=== PATIENT | male | born 1955 | race Caucasian/White ===

== ENCOUNTER 2019-03-09 19:17 | Emergency (ER) | payer BC, OTHER ==
[2019-03-09] MEDS ORDERED: Metoclopramide 10 MG/2 ML SDV IVPUSH ONE (20:06)
[2019-03-09] MEDS ORDERED: HYDROmorphone 0.5 MG/0.5 ML Syringe IVPUSH ONE (20:06)
--- NOTE | 2019-03-09 20:06 | EDM.PDOC ---
ED HPI GENERAL MEDICAL PROBLEM - General Chief Complaint: Abdominal Pain Stated Complaint: ABDOMINAL PAIN Time Seen by Provider: 03/09/19 20:00 Source of Information: Reports: Patient History Limitations: Reports: No Limitations - History of Present Illness INITIAL COMMENTS - FREE TEXT/NARRATIVE: 63-year-old male presents to the ED with diffuse lower abdominal pain which is constant but intermittently gets much worse indicating a colicky component. Patient was recently diagnosed with a pancreatic mass and suspect pancreatic carcinoma. He was in [place] on March 07 and underwent ERCP with pancreatic biopsies and apparently a stent placed in the common bile duct and in the pancreatic duct. From hospital a few hours later. He states the pain has almost always been upper abdominal for the last several weeks. It is now much worse in the infraumbilical area across both sides of his lower abdomen. Is not radiating to his back. He is hardly kept down any solids. He did keep down some scrambled eggs this morning. Not had a bowel movement for several days and he was given milk of magnesia and today Citroma orally in an effort to get his bowels working. About an hour ago he had emesis dark black in color question. Coffee-ground emesis, no bright red blood. No fever or chills. States he just passes his urine on a periodic basis he doesn't really have the sensation of void. I suspect he is voiding just to get relief of the abdominal pain. Nausea comes in waves. Patient can't comment that he feels any more distended than normal. Not sure that he's passing any flatus. Onset: Other (Patient has had upper abdominal pain for several weeks. Recently diagnosed by CT scan of a pancreatic mass. Underwent ERCP with pancreatic biopsy on March 07 in [facility].He had a stent placed in his common bile duct and pancreatic duct at that time. [facility] a few hours after the procedure. Has not her to been able to eat at all since discharge. Has not had a bowel 1. He's not sure that he's passing any flatus at this time.) Onset Date: 03/09/19 (Pain has changed his now become lower abdominal stat of upper abdominal pain and is constant with a intermittent strong colicky component.) Duration: Hour(s): Location: Reports: Abdomen (Diffuse lower abdominal pain which is constant with a colicky component.), Other (Nausea and vomiting of dark black emesis.) Quality: Reports: Sharp (Pain is described as a deep constant aching pain with intermittent worsening suggesting colicky component.), Stabbing, Other Severity: Severe Improves with: Reports: None (9 out of 10), Other Worsens with: Reports: None Context: Reports: Other (Patient recently diagnosed with pancreatic cancer or suspect pancreatic cancer. Underwent ERCP in [place] on Thursday, March 07 and palliative placement of stents in both his pancreatic duct and common bile duct. ). Denies: Activity, Exercise (Vomiting did not ease up the pain.), Lifting, Sick Contact, Trauma Associated Symptoms: Reports: Loss of Appetite, Malaise, Nausea/Vomiting, Weakness. 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: Other (see below) (Has been taking laxatives today including milk of magnesia and Citroma and an effort to get his bowels working.) Middle Abdomen Pain Score (Numeric/FACES): 9 - Related Data Allergies Allergy/AdvReac Type Severity Reaction Status Date / Time No Known Allergies Allergy Verified 03/09/19 19:48 Home Meds: Home Meds Acetaminophen [Tylenol Extra Strength] 500 mg PO DAILY 03/09/19 [History] Aspirin/Caffeine [Trey Back & Body Caplet] 1 each PO DAILY 03/09/19 [History] Chlorthalidone 25 mg PO DAILY 03/09/19 [History] Enalapril Maleate 20 mg PO DAILY 03/09/19 [History] Ibuprofen 200 mg PO Q4HR 03/09/19 [History] Simvastatin [Zocor] 40 mg PO DAILY 03/09/19 [History] oxyCODONE HCl/Acetaminophen [Oxycodone-Acetaminophen 5-325] 1 each PO Q4HR 03/09 [History] Past Medical History HEENT History: Reports: None Cardiovascular History: Reports: High Cholesterol, Hypertension Respiratory History: Reports: None Genitourinary History: Reports: None Musculoskeletal History: Reports: None Neurological History: Reports: None Psychiatric History: Reports: None Endocrine/Metabolic History: Reports: None Hematologic History: Reports: None Immunologic History: Reports: None Oncologic (Cancer) History: Reports: Pancreatic Dermatologic History: Reports: None - Infectious Disease History Infectious Disease History: Reports: None - Past Surgical History Head Surgeries/Procedures: Reports: None GI Surgical History: Reports: ERCP Other GI Surgeries/Procedures: Stents placed in pancreas and liver. Social & Family History - Tobacco Use Smoking Status *Q: Current Every Day Smoker Years of Tobacco use: 48 Packs/Tins Daily: 1 - Caffeine Use Caffeine Use: Reports: Coffee, Soda - Recreational Drug Use Recreational Drug Use: No - Living Situation & Occupation Living situation: Reports: Occupation: Employed ED ROS GENERAL - Review of Systems Review Of Systems: See Below Constitutional: Reports: Malaise, Weakness, Fatigue, Decreased Appetite, Weight Loss. Denies: Fever, Chills HEENT: Reports: No Symptoms Respiratory: Reports: No Symptoms Cardiovascular: Reports: Blood Pressure Problem Endocrine: Reports: Fatigue GI/Abdominal: Reports: Abdominal Pain (See history present illness), Constipation (No bowel movement for 3 or 4 days.), Decreased Appetite ( Augmentin for 3 days at least.), Vomiting (Vomiting of dark black material tonight.). Denies: Difficulty Swallowing, Flatus (Not sure if he's passing any flatus for the last 8 hours.) : Reports: Other (He states he doesn't feel a sensation of void. He just voids to see if it will relieve his abdominal pain.) Musculoskeletal: Reports: No Symptoms Skin: Reports: No Symptoms Neurological: Reports: Weakness. Denies: Dizziness ED EXAM, GI/ABD - Physical Exam Exam: See Below Exam Limited By: No Limitations General Appearance: Alert, WD/WN, Moderate Distress, Other (He appears to been a good deal of pain Resting tachycardia of 117 per minute. Temperature 35.8. Respiratory of 18 BP 112/69. Nurse recorded blood pressure as low as 95 systolic. O2 sats 96% on room air. ) Eyes: Bilateral: Normal Appearance (No scleral icterus.) Throat/Mouth: Other Head: Atraumatic (Tongue is mildly dry and coated), Normocephalic Neck: Normal Inspection, Supple, Non-Tender, Full Range of Motion. No: Carotid Bruit, Lymphadenopathy (L), Lymphadenopathy (R), Thyromegaly Respiratory/Chest: No Respiratory Distress, Lungs Clear, Normal Breath Sounds, No Accessory Muscle Use, Chest Non-Tender Cardiovascular: No Edema (Resting tachycardia 1 17/m.), No Gallop, No Murmur, No Rub, Tachycardia GI/Abdominal Exam: Distended (Bowel sounds are hyperactive in all 4 quadrants. Distended and firm to palpation and diffusely tympanitic to percussion.), Abnormal Bowel Sounds, Other (Abdominal distention limits ability to palpate any solid organs.) (Male) Exam: No Hernia Back Exam: Normal Inspection, Full Range of Motion. No: CVA Tenderness (L), CVA Tenderness (R) Extremities: Normal Inspection, Normal Range of Motion, Non-Tender, No Pedal Edema Neurological: Alert, Oriented, CN II-XII Intact, Normal Cognition Psychiatric: Flat Affect Skin Exam: Warm, Dry, Intact, Normal Color, No Rash EKG INTERPRETATION EKG Date: 03/09/19 Time: 20:32 Rhythm: Other (Sinus tachycardia at 1 15/m) Rate (Beats/Min): 115 [place]: RAD-Right [place] Deviation (Minimal right ex deviation 95) P-Wave: Enlarged (Right atrial hypertrophy pattern) QRS: Other (Initial poor R-wave progression cannot rule out old anteroseptal myocardial infarction.) ST-T: Other (Early diffuse repolarization pattern.) QT: Normal EKG Interpretation Comments: Borderline ECG. Course - Vital Signs Last Recorded V/S: Last Vital Signs Temp 35.8 C 03/09/19 19:44 Pulse 117 H 03/09/19 19:44 Resp 18 03/09/19 19:44 BP 112/69 03/09/19 19:44 Pulse Ox 96 03/09/19 19:44 - Orders/Labs/Meds Orders: Active Orders 24 hr Category Date Time Status EKG Documentation Completion [RC] STAT Care 03/09/19 20:07 Active Nasogastric Tube Management [Gastrointestinal Tube Mgmt Care 03/09/19 23:06 Active ] [RC] ASDIRECTED Abdomen 1V Flat [CR] Stat Exams 03/09/19 20:07 Taken Abdomen Pelvis wo Cont [CT] Stat Exams 03/09/19 21:32 Taken CULTURE BLOOD [BC] Stat Lab 03/09/19 20:25 Received CULTURE BLOOD [BC] Stat Lab 03/09/19 20:31 Received LACTIC ACID [CHEM] Stat Lab 03/10/19 04:00 Ordered Dextrose 5%-0.9% NaCl [Dextrose 5%-Normal Saline] 1,000 Med 03/09/19 20:15 Active ml IV ASDIRECTED Sodium Chloride 0.9% [Normal Saline] 1,000 ml Med 03/09/19 23:30 Active IV ASDIRECTED metroNIDAZOLE/Normal Saline [Flagyl 500 MG in NS 100 ML Med 03/10/19 03:27 Active ] 500 mg Premix Bag 1 bag IV ONETIME Blood Culture x2 Reflex Set [OM.PC] Stat Ot 03/09/19 20:09 Ordered Nasogastric Orogastric Tube Insertion [OM.PC] Routine Ot 03/09/19 23:05 Ordered Medication Orders Dextrose/Sodium Chloride (Dextrose 5%-Normal Saline) 1,000 mls @ 999 mls/hr IV ASDIRECTED [facility] Last Admin: 03/09/19 20:41 Dose: 999 mls/hr Sodium Chloride (Normal Saline) 1,000 mls @ 150 mls/hr IV ASDIRECTED [facility] Last Admin: 03/09/19 23:55 Dose: 150 mls/hr Metronidazole 500 mg/ Premix 100 mls @ 100 mls/hr IV ONETIME ONE Stop: 03/10/19 04:26 Last Admin: 03/10/19 03:45 Dose: 100 mls/hr Labs: Laboratory Tests 03/09/19 03/09/19 03/09/19 Range/Units 20:10 20:10 20:10 WBC 20.34 H (4.23-9.07) K/mm3 RBC 4.65 (4.63-6.08) M/mm3 Hgb 13.8 (13.7-17.5) gm/L Hct 40.0 L (40.1-51.0) % MCV 86.0 (79.0-92.2) fl MCH 29.7 (25.7-32.2) pg MCHC 34.5 (32.2-35.5) g/dl RDW Std Deviation 41.1 (35.1-43.9) fL Plt Count 257 (163-337) K/mm3 MPV 11.4 (9.4-12.3) fl Neutrophils % (Manual) 78 H (40-60) % Band Neutrophils % 6 (0-10) % Lymphocytes % (Manual) 12 L (20-40) % Atypical Lymphs % 0 % Monocytes % (Manual) 4 (2-10) % Eosinophils % (Manual) 0 L (0.8-7.0) % Basophils % (Manual) 0 L (0.2-1.2) Platelet Estimate Adequate RBC Morph Comment Normal PT 10.9 (9.7-12.0) SECONDS INR 1.00 APTT (22-31) SECONDS Sodium 132 L (136-145) mEq/L Potassium 3.6 (3.5-5.1) mEq/L Chloride 91 L (98-107) mEq/L Carbon Dioxide 30 (21-32) mEq/L Anion Gap 14.6 (5-15) BUN 34 H (7-18) mg/dL Creatinine 1.8 H (0.7-1.3) mg/dL Est Cr Clr Drug Dosing 40.64 mL/min Estimated GFR (MDRD) 38 (>60) mL/min BUN/Creatinine Ratio 18.9 H (14-18) Glucose 268 H (80-115) mg/dL Lactic Acid (0.4-2.0) mmol/L Calcium 10.0 (8.5-10.1) mg/dL Magnesium 2.2 (1.8-2.4) mg/dl Total Bilirubin 1.3 H (0.2-1.0) mg/dL GGT 313 H (15-85) U/L AST 19 (15-37) U/L ALT 70 H (16-63) U/L Alkaline Phosphatase 97 (46-116) U/L C-Reactive Protein 26.7 H* (<1.0) mg/dL NT-Pro-B Natriuret Pep (0-125) pg/mL Total Protein 8.2 (6.4-8.2) g/dl Albumin 3.5 (3.4-5.0) g/dl Globulin 4.7 gm/dL Albumin/Globulin Ratio 0.7 L (1-2) Lipase 3366 H (73-393) U/L 03/09/19 03/09/19 03/09/19 Range/Units 20:10 20:10 20:10 WBC (4.23-9.07) K/mm3 RBC (4.63-6.08) M/mm3 Hgb (13.7-17.5) gm/L Hct (40.1-51.0) % MCV (79.0-92.2) fl MCH (25.7-32.2) pg MCHC (32.2-35.5) g/dl RDW Std Deviation (35.1-43.9) fL Plt Count (163-337) K/mm3 MPV (9.4-12.3) fl Neutrophils % (Manual) (40-60) % Band Neutrophils % (0-10) % Lymphocytes % (Manual) (20-40) % Atypical Lymphs % % Monocytes % (Manual) (2-10) % Eosinophils % (Manual) (0.8-7.0) % Basophils % (Manual) (0.2-1.2) Platelet Estimate RBC Morph Comment PT (9.7-12.0) SECONDS INR APTT 27 (22-31) SECONDS Sodium (136-145) mEq/L Potassium (3.5-5.1) mEq/L Chloride (98-107) mEq/L Carbon Dioxide (21-32) mEq/L Anion Gap (5-15) BUN (7-18) mg/dL Creatinine (0.7-1.3) mg/dL Est Cr Clr Drug Dosing mL/min Estimated GFR (MDRD) (>60) mL/min BUN/Creatinine Ratio (14-18) Glucose (80-115) mg/dL Lactic Acid 2.3 H (0.4-2.0) mmol/L Calcium (8.5-10.1) mg/dL Magnesium (1.8-2.4) mg/dl Total Bilirubin (0.2-1.0) mg/dL GGT (15-85) U/L AST (15-37) U/L ALT (16-63) U/L Alkaline Phosphatase (46-116) U/L C-Reactive Protein (<1.0) mg/dL NT-Pro-B Natriuret Pep 203 H (0-125) pg/mL Total Protein (6.4-8.2) g/dl Albumin (3.4-5.0) g/dl Globulin gm/dL Albumin/Globulin Ratio (1-2) Lipase (73-393) U/L Meds: Medications Generic Name Dose Route Start Last Admin Trade Name Freq PRN Reason Stop Dose Admin Dextrose/Sodium Chloride 1,000 mls @ 999 mls/hr 03/09/19 20:15 03/09/19 20:41 Dextrose 5%-Normal Saline IV 999 mls/hr ASDIRECTED DESHANW Administration Sodium Chloride 1,000 mls @ 150 mls/hr 03/09/19 23:30 03/09/19 23:55 Normal Saline IV 150 mls/hr ASDIRECTED DESHAWN Administration Metronidazole 500 mg/ Premix 100 mls @ 100 mls/hr 03/10/19 03:27 03/10/19 03: 45 IV 03/10/19 04:26 100 mls/hr ONETIME ONE Administration Discontinued Medications Generic Name Dose Route Start Last Admin Trade Name Marilynn PRN Reason Stop Dose Admin Hydromorphone HCl 0.5 mg 03/09/19 20:06 03/09/19 20:37 Dilaudid IVPUSH 03/09/19 20:07 0.5 mg ONETIME ONE Administration Hydromorphone HCl 1 mg 03/09/19 21:31 03/09/19 21:38 Dilaudid IVPUSH 03/09/19 21:32 1 mg ONETIME ONE Administration Hydromorphone HCl 1 mg 03/10/19 03:13 03/10/19 03:44 Dilaudid IVPUSH 03/10/19 03:14 1 mg ONETIME ONE Administration Linezolid 600 mg/ Premix 300 mls @ 300 mls/hr 03/09/19 21:19 03/09/19 21:43 IV 03/09/19 22:18 300 mls/hr ONETIME ONE Administration Levofloxacin/Dextrose 750 mg/ 150 mls @ 100 mls/hr 03/09/19 23:18 03/09/19 23 :56 Premix IV 03/10/19 00:47 100 mls/hr ONETIME ONE Administration Lidocaine HCl 10 ml 03/09/19 23:04 Xylocaine 2% Jelly MUCMEM 03/09/19 23:05 ONETIME ONE Metoclopramide HCl 7.5 mg 03/09/19 20:06 03/09/19 20:34 Reglan IVPUSH 03/09/19 20:07 7.5 mg ONETIME ONE Administration Metoclopramide HCl 7.5 mg 03/10/19 03:13 03/10/19 03:43 Reglan IVPUSH 03/10/19 03:14 7.5 mg ONETIME ONE Administration - Radiology Interpretation Free Text/Narrative:: 63-year-old male presents to the ED with diffuse lower abdominal pain but also some degree of upper abdominal pain. Patient has had periumbilical pressure discomfort which became progressively worse over the last 2-3 weeks. ET suggesting likely a pancreatic mass. 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 He underwent ERCP with biopsy of pancreatic mass and placement of a common bile duct stent and pancreatic stent to the best of the patient's knowledge he was discharged home a few hours later. Since then he has developed gradually worsening diffuse lower abdominal pressure and pain. No bowel movement for 3 days. Taking oxycodone for pain relief. Tonight he vomited dark black looking material concerning for he met emesis although no blood was noted. He's not sure if he's passing any flatus. Pain is 9 out of 10. It is constant with a colicky component he is distended clinically with tympany to percussion with hyperactive bowel sounds concerning for possible bowel obstruction. Plan blood pressure is relatively low. Will be placed on D5 normal saline at open. Dilaudid 0.5 mg IV for pain relief due to his mild hypotension at this time. Reglan 7.5 mg IV for nausea relief. He will have routine lab work including blood cultures 2 although he is afebrile at this time. Lactic acid will also be drawn with a serum lipase. And will be performed. Possible need for CT of the abdomen. - Re-Assessments/Exams Free Text/Narrative Re-Assessment/Exam: 03/09/19 21:33 KUB reveals several dilated loops of small bowel compatible with an ileus type pattern. There is increased stool throughout the right hemicolon only. No air-fluid levels are evident.White count is markedly elevated at 20.34. 70% neutrophils and 6% band cells. Hemoglobin is 13.8 with hematocrit of 40.0. Platelet count 257,000. PT is 10.9 with an INR 1.00. PTT is 27. Sodium is 132 with a potassium of 3.6. Chloride 91 with a bicarbonate of 30. Anion gap is 14.6. BUN is 34 with a creatinine of 1.8. BUN/creatinine ratio is 18.9 slightly elevated. Glucose is elevated at 268. Lactic acid is elevated at 2.3. Calcium is 10.0. Magnesium is 2.2. Bilirubin is 1.3. GGT is elevated at 313. AST is 19 the LTS 70. Alk phosphatase 97. C-reactive protein is markedly elevated at 26.7. BNP is 2003. Lipase is elevated at 3366. Total protein is 8.2 with an albumin fraction of 3.5. Clinically the patient has a significant pancreatitis. Elevated white count suggests possibility of an infective process with left shift. He will be given linezolid 600 mg IV. He'll be followed by Levaquin 750 mg IV for gram-negative sepsis potentially. Patient will have CT scan of the abdomen once I get control of his pain. He still having severe pain. Will given Dilaudid 1 mg IV. 03/10/19: 00:10: CT of the abdomen has been completed without any oral or IV contrast. There is evidence of placement of a biliary stent which appears patent. There is peripancreatic inflammation especially involving the head of the pancreas consistent with an acute pancreatitis. Spleen appears normal and renal glands appear normal kidneys and ureters appear normal with no hydronephrosis. There are multiple mildly dilated loops of small bowel consistent with an ileus mid abdomen. No evidence of appendicitis. No free air no significant fluid collection in the intraperitoneal space abdominal aortic aneurysm. No enlarged lymph nodes. Bladder is unremarkable. Palpable mass in the head of the pancreas suspect for carcinoma. 03/10/19 01:[address] Woodward--superintendent communications hospitalist at [facility] in [place] and she has accepted care of the patient. I spoken earlier with Dr. Acevedo to 1 call at [facility] in [place] and he felt that the patient better served in [place] in case the stent required manipulation or was plugged as they do not have any cushion assembler in [facility] that places stents. Apparently the initial stents placed in his common bile duct and pancreatic duct were placed by Dr. Mohamud who may have been a locums. Apparently Dr. Jeronimo is superintendent communications and does not place any stents. 03/10/19 02:23 states at present his pain is fairly well controlled. He has drained approximately 450 mils of dark bilious material from his stomach through the nasogastric tube. He does have a feeling of need to defecate but so far has been unable to go. He does now start to feel or appreciate passing some flatus per rectum. This suggests the ileus is starting to let up. He is likely going to have diarrhea as there is quite a bit of fluid in the small bowel. 03/10/19 03:13 Still no plane available for transport to [place]. The weather is still too bad. They will check again at 0400 hrs. Since pain is starting to come back. Will therefore repeat Dilaudid 1 mg IV with Reglan 7.5 mg IV for relief of pancreatitis. He also was going to start him on Flagyl 500 mg IV to cover for anaerobic infection but was distracted by other patient care and the order was not written. I will write for it now. 03/10/19 03:27: Local paramedics have made a decision to transport the patient to [place]. I will therefore fill out appropriate paper work and he can go by ground ambulance. 03/10/19 04:00 I will have a second lactic acid level drawn at this time and then fax it to [place]. Departure - Departure Time of Disposition: 04:01 Disposition: DC/Tfer to Acute Hospital 02 Condition: Serious Clinical Impression: Acute pancreatitis after endoscopic retrograde cholangiopancreatography (ERCP) , Pancreatic carcinoma, Ileus, postoperative, Neutrophilic leukocytosis, Volume depletion, gastrointestinal loss, Renal insufficiency, Hyponatremia, Elevated C- reactive protein (CRP) Nausea and vomiting Qualifiers: Vomiting type: bilious vomiting Qualified Code(s): R11.14 - Bilious vomiting Abdominal pain Qualifiers: Abdominal location: generalized Qualified Code(s): R10.84 - Generalized abdominal pain - Discharge Information *PRESCRIPTION DRUG MONITORING PROGRAM REVIEWED*: Not Applicable *COPY OF PRESCRIPTION DRUG MONITORING REPORT IN PATIENT JARETH: Not Applicable Referrals: Sedrick Moralez Jr, MD [Primary Care Provider] - Forms: ED Department Discharge Additional Instructions: Patient will be transported back to [facility] where he had the ERCP and pancreatic abscesses and placement of common bile duct stent on Thursday , March 07. I had discussed care with [facility] in [place] but they declined to accept care of the patient due to the possibility of needing further intervention with stenting. They state they have no one at that institution that does any common bile duct or pancreatic duct stenting. We were waiting for the weather to clear her to be able to fly the patient to [place] but the weather has failed to improve over the last 4 hours. [facility] has opted to take the patient by ground ambulance to [place] at this time. - My Orders Last 24 Hours: My Active Orders 03/09/19 20:07 EKG Documentation Completion [RC] STAT Abdomen 1V Flat [CR] Stat 03/09/19 20:09 Blood Culture x2 Reflex Set [OM.PC] Stat 03/09/19 20:15 Dextrose 5%-0.9% NaCl [Dextrose 5%-Normal Saline] 1,000 ml IV ASDIRECTED 03/09/19 20:25 CULTURE BLOOD [BC] Stat 03/09/19 20:31 CULTURE BLOOD [BC] Stat 03/09/19 21:32 Abdomen Pelvis wo Cont [CT] Stat 03/09/19 23:05 Nasogastric Orogastric Tube Insertion [OM.PC] Routine 03/09/19 23:06 Nasogastric Tube Management [Gastrointestinal Tube Mgmt] [RC] ASDIRECTED 03/09/19 23:30 Sodium Chloride 0.9% [Normal Saline] 1,000 ml IV ASDIRECTED 03/10/19 03:27 metroNIDAZOLE/Normal Saline [Flagyl 500 MG in NS 100 ML] 500 mg Premix Bag 1 bag IV ONETIME 03/10/19 04:00 LACTIC ACID [CHEM] Stat - Assessment/Plan Last 24 Hours: My Active Orders 03/09/19 20:07 EKG Documentation Completion [RC] STAT Abdomen 1V Flat [CR] Stat 03/09/19 20:09 Blood Culture x2 Reflex Set [OM.PC] Stat 03/09/19 20:15 Dextrose 5%-0.9% NaCl [Dextrose 5%-Normal Saline] 1,000 ml IV ASDIRECTED 03/09/19 20:25 CULTURE BLOOD [BC] Stat 03/09/19 20:31 CULTURE BLOOD [BC] Stat 03/09/19 21:32 Abdomen Pelvis wo Cont [CT] Stat 03/09/19 23:05 Nasogastric Orogastric Tube Insertion [OM.PC] Routine 03/09/19 23:06 Nasogastric Tube Management [Gastrointestinal Tube Mgmt] [RC] ASDIRECTED 03/09/19 23:30 Sodium Chloride 0.9% [Normal Saline] 1,000 ml IV ASDIRECTED 03/10/19 03:27 metroNIDAZOLE/Normal Saline [Flagyl 500 MG in NS 100 ML] 500 mg Premix Bag 1 bag IV ONETIME 03/10/19 04:00 LACTIC ACID [CHEM] Stat
[2019-03-09] MEDS ORDERED: Dextrose 5%-0.9% NaCl 1,000 ML IV SCH (20:15)
[2019-03-09] MEDS ORDERED: Linezolid 600 MG in Premix Bag 1 BAG IV ONE (21:19)
[2019-03-09] MEDS ORDERED: HYDROmorphone 1 MG/ML Syringe IVPUSH ONE (21:31)
[2019-03-09] MEDS ORDERED: Lidocaine 2% Jelly 10 ML Urojet MUCMEM ONE (23:04)
[2019-03-09] MEDS ORDERED: Levofloxacin/Dextrose 5%-Water 750 MG in Premix Bag 1 BAG IV ONE (23:18)
[2019-03-09] MEDS ORDERED: Sodium Chloride 0.9% 1,000 ML IV SCH (23:30)
[2019-03-10] MEDS ORDERED: HYDROmorphone 1 MG/ML Syringe IVPUSH ONE (03:13)
[2019-03-10] MEDS ORDERED: Metoclopramide 10 MG/2 ML SDV IVPUSH ONE (03:13)
[2019-03-10] MEDS ORDERED: metroNIDAZOLE/Normal Saline 500 MG in Premix Bag 1 BAG IV ONE (03:27)
--- NOTE | 2019-03-14 06:39 | CR ---
Abdomen: Supine view of the abdomen was obtained. Comparison: No prior abdominal x-ray. Scattered gas within small bowel and colon is seen. Biliary stent is present. Calcification compatible with phlebolith is noted within the right side of the pelvis. Mild arterial calcification is seen. Slight degenerative change is noted within the spine. Impression: 1. Nonacute findings as noted above. Diagnostic code #2
--- NOTE | 2019-03-14 06:41 | CT ---
CT abdomen and pelvis Technique: Multiple axial sections were obtained from above the dome of the diaphragm inferiorly through the pubic symphysis. Intravenous and oral contrast not utilized. Lack of contrast limits the study for details. Comparison: No prior CT study is available. Findings: Areas of increased density are seen within both lung bases most likely representing atelectasis. Intrahepatic biliary air is seen. Biliary stent is present. Vague hypodense area is noted within the pancreatic head raising the possibility of pancreatic head mass. Slight haziness is seen around the pancreas. This may relate to pancreatitis or change from local neoplastic spread if patient has history of such. Adrenal glands show no nodule. Kidneys show no hydronephrosis or abnormal calcifications. Aorta shows atherosclerotic calcification without aneurysm. No retroperitoneal adenopathy is seen. No mesenteric abnormalities are seen. Diverticuli are seen within the sigmoid colon. Prostate gland is slightly enlarged. No free fluid is seen. Bone window settings were reviewed which show mild diffuse degenerative change throughout the spine. Impression: 1. Hypodense area within the pancreatic head raising the possibility of pancreatic mass. Slight inflammatory change around the pancreatic head which may represent pancreatitis or change from local spread of pancreatic carcinoma. 2. Biliary stent is present. Intrahepatic biliary air is noted. 3. Other findings believed to be incidental as noted above. Diagnostic code #9 I agree with preliminary report from [facility], finalized on 03/10/19, 12:26 AM Central Time
== END 2019-03-10 04:15 ==
LOC: JD.ED 19:17
DX: K91.89 Other postprocedural complications and disorders of digestive system (principal); C25.9 Malignant neoplasm of pancreas, unspecified; K56.7 Ileus, unspecified; R79.82 Elevated C-reactive protein (CRP); N28.9 Disorder of kidney and ureter, unspecified; E87.1 Hypo-osmolality and hyponatremia; E86.9 Volume depletion, unspecified; D72.829 Elevated white blood cell count, unspecified; I10 Essential (primary) hypertension; E78.00 Pure hypercholesterolemia, unspecified; F17.210 Nicotine dependence, cigarettes, uncomplicated; Z79.82 Long term (current) use of aspirin; Z79.899 Other long term (current) drug therapy
CPT/HCPCS: 36415; 43752; 74018; 74176; 80053; 82977; 83605; 83690; 83735; 83880; 85007; 85027; 85610; 85730; 86140; 87040; 93005; 96361; 96365; 96366; 96367; 96375; 96376; 99285; J1170; J1956; J2020; J2765; J3490; J7040; J7042; 93010

== ENCOUNTER 2019-03-19 14:59 | Emergency (ER) | payer OTHER ==
[2019-03-19] MEDS ORDERED: Ondansetron 4 MG/2 ML SDV IVPUSH ONE (15:29)
[2019-03-19] MEDS ORDERED: HYDROmorphone 0.5 MG/0.5 ML Syringe IVPUSH ONE (15:29)
[2019-03-19] MEDS ORDERED: Sodium Chloride 0.9% 1,000 ML IV SCH (15:45)
--- NOTE | 2019-03-19 16:00 | EDM.PDOC ---
ED HPI GENERAL MEDICAL PROBLEM - General Chief Complaint: Gastrointestinal Problem Stated Complaint: VOMITING AND SWEATING Time Seen by Provider: 03/19/19 15:28 Source of Information: Reports: Patient, Old Records, RN Notes Reviewed History Limitations: Reports: No Limitations - History of Present Illness INITIAL COMMENTS - FREE TEXT/NARRATIVE: Patient is a 63-year-old male who presents to the ED for evaluation of vomiting and upper abdominal pain. The patient notes that he has recently been diagnosed with pancreatic cancer, and pancreatitis. He was recently seen in this ER for abdominal pain and transferred to [place] subsequently. Patient states that he did have stents placed to his pancreas in [place]. He complains of ongoing pain with nausea and vomiting. He states that he has increased nausea and vomiting since last night after he took his dose of antibiotics. He was placed on antibiotics due to an intra-abdominal infection after the stent placement. Patient notes that he has some increased belching as well. He denies any fevers, but feels sweaty and clammy. He denies any diarrhea and can' t really remember the last time he had a good bowel movement. He denies any started chest pain or shortness of breath. He states that the belching does make him nauseous. He notes that he last had a boost shake this morning and a very light breakfast both of which stayed down. Upper Abdomen Pain Score (Numeric/FACES): 10 - Related Data Allergies Allergy/AdvReac Type Severity Reaction Status Date / Time No Known Allergies Allergy Verified 03/09/19 19:48 Home Meds: Home Meds Acetaminophen [Tylenol Extra Strength] 500 mg PO DAILY 03/09/19 [History] Aspirin/Caffeine [Trey Back & Body Caplet] 1 each PO DAILY 03/09/19 [History] Chlorthalidone 25 mg PO DAILY 03/09/19 [History] Enalapril Maleate 20 mg PO DAILY 03/09/19 [History] Ibuprofen 200 mg PO Q4HR 03/09/19 [History] Simvastatin [Zocor] 40 mg PO DAILY 03/09/19 [History] oxyCODONE HCl/Acetaminophen [Oxycodone-Acetaminophen 5-325] 1 each PO Q4HR 03/09 [History] Past Medical History HEENT History: Reports: None Cardiovascular History: Reports: High Cholesterol, Hypertension Respiratory History: Reports: None Gastrointestinal History: Reports: Pancreatitis Genitourinary History: Reports: None Musculoskeletal History: Reports: None Neurological History: Reports: None Psychiatric History: Reports: None Endocrine/Metabolic History: Reports: None Hematologic History: Reports: None Immunologic History: Reports: None Oncologic (Cancer) History: Reports: Pancreatic Dermatologic History: Reports: None - Infectious Disease History Infectious Disease History: Reports: None - Past Surgical History Head Surgeries/Procedures: Reports: None GI Surgical History: Reports: ERCP Other GI Surgeries/Procedures: Stents placed in pancreas and liver. Social & Family History - Tobacco Use Smoking Status *Q: Former Smoker Years of Tobacco use: 43 Packs/Tins Daily: 1 Used Tobacco, but Quit: Yes Month/Year Tobacco Last Used: Feb 2019 - Caffeine Use Caffeine Use: Reports: Coffee, Soda - Recreational Drug Use Recreational Drug Use: No - Living Situation & Occupation Living situation: Reports: Occupation: Employed ED ROS GENERAL - Review of Systems Review Of Systems: See Below Constitutional: Reports: Chills, Diaphoresis (feels "clammy"). Denies: Fever HEENT: Reports: No Symptoms Respiratory: Reports: No Symptoms Cardiovascular: Reports: No Symptoms Endocrine: Reports: No Symptoms GI/Abdominal: Reports: Abdominal Pain (upper abd pain), Nausea, Vomiting. Denies: Constipation, Diarrhea : Reports: No Symptoms Musculoskeletal: Reports: No Symptoms Skin: Reports: No Symptoms Neurological: Reports: No Symptoms Psychiatric: Reports: No Symptoms Hematologic/Lymphatic: Reports: No Symptoms Immunologic: Reports: No Symptoms ED EXAM, GI/ABD - Physical Exam Exam: See Below Exam Limited By: No Limitations General Appearance: Alert, WD/WN, No Apparent Distress Eyes: Bilateral: Normal Appearance Head: Atraumatic, Normocephalic Respiratory/Chest: No Respiratory Distress, Lungs Clear, Normal Breath Sounds, No Accessory Muscle Use, Chest Non-Tender Cardiovascular: Normal Peripheral Pulses, Regular Rate, Rhythm, No Murmur GI/Abdominal Exam: Normal Bowel Sounds, Soft, No Distention, No Mass, Guarding, Tender (diffusely tender in upper abdomen,) Extremities: Normal Inspection, Normal Capillary Refill Neurological: Alert, Oriented, Normal Cognition, No Motor/Sensory Deficits Psychiatric: Normal Affect, Normal Mood Skin Exam: Warm, Dry, Intact, No Rash, Pallor (Generalized.) Course - Vital Signs Last Recorded V/S: Last Vital Signs Temp 96.3 F 03/19/19 15:05 Pulse 88 03/19/19 15:05 Resp 16 03/19/19 15:05 BP 111/52 L 03/19/19 15:05 Pulse Ox 97 03/19/19 15:05 - Orders/Labs/Meds Orders: Active Orders 24 hr Category Date Time Status Abdomen 2V AP Flat Upright [CR] Stat Exams 03/19/19 15:51 Taken Abdomen Pelvis w Cont [CT] Stat Exams 03/19/19 19:35 Taken CULTURE BLOOD [BC] Stat Lab 03/19/19 21:30 Received CULTURE BLOOD [BC] Stat Lab 03/19/19 21:40 Received Piperacillin/Tazobactam [Piperacil-Tazobact] 4.5 gm Med 03/19/19 21:08 Active Sodium Chloride 0.9% [Normal Saline] 100 ml IV ONETIME Sodium Chloride 0.9% [Normal Saline] 1,000 ml Med 03/19/19 15:45 Active IV ASDIRECTED Blood Culture x2 Reflex Set [OM.PC] Stat Oth 03/19/19 21:05 Ordered Nasogastric Orogastric Tube Insertion [OM.PC] Routine Oth 03/19/19 21:07 Ordered Medication Orders Sodium Chloride (Normal Saline) 1,000 mls @ 999 mls/hr IV ASDIRECTED DESHAWN Last Admin: 03/19/19 16:15 Dose: 999 mls/hr Piperacillin Sod/Tazobactam (Sod 4.5 gm/ Sodium Chloride) 100 mls @ 25 mls/hr IV ONETIME ONE Stop: 03/20/19 01:07 Last Admin: 03/19/19 21:45 Dose: 25 mls/hr Labs: Laboratory Tests 03/19/19 03/19/19 03/19/19 Range/Units 15:25 15:25 15:25 WBC 15.19 H (4.23-9.07) K/mm3 RBC 4.12 L (4.63-6.08) M/mm3 Hgb 12.0 L D (13.7-17.5) gm/dl Hct 35.9 L (40.1-51.0) % MCV 87.1 (79.0-92.2) fl MCH 29.1 (25.7-32.2) pg MCHC 33.4 (32.2-35.5) g/dl RDW Std Deviation 42.2 (35.1-43.9) fL Plt Count 395 H D (163-337) K/mm3 MPV 9.8 (9.4-12.3) fl Neutrophils % (Manual) 83 H (40-60) % Band Neutrophils % 0 (0-10) % Lymphocytes % (Manual) 13 L (20-40) % Atypical Lymphs % 0 % Monocytes % (Manual) 3 (2-10) % Eosinophils % (Manual) 1 (0.8-7.0) % Basophils % (Manual) 0 L (0.2-1.2) Toxic Granulation Few Platelet Estimate Adequate RBC Morph Comment Normal Sodium 131 L (136-145) mEq/L Potassium 3.1 L (3.5-5.1) mEq/L Chloride 93 L (98-107) mEq/L Carbon Dioxide 32 (21-32) mEq/L Anion Gap 9.1 (5-15) BUN 14 (7-18) mg/dL Creatinine 0.9 (0.7-1.3) mg/dL Est Cr Clr Drug Dosing 81.28 mL/min Estimated GFR (MDRD) > 60 (>60) mL/min BUN/Creatinine Ratio 15.6 (14-18) Glucose 164 H (80-115) mg/dL Calcium 9.1 (8.5-10.1) mg/dL Total Bilirubin 0.6 (0.2-1.0) mg/dL GGT 267 H (15-85) U/L AST 18 (15-37) U/L ALT 27 (16-63) U/L Alkaline Phosphatase 166 H (46-116) U/L C-Reactive Protein 16.1 H* (<1.0) mg/dL Total Protein 7.5 (6.4-8.2) g/dl Albumin 2.3 L (3.4-5.0) g/dl Globulin 5.2 gm/dL Albumin/Globulin Ratio 0.4 L (1-2) Lipase 774 H (73-393) U/L Urine Color (Yellow) Urine Appearance (Clear) Urine pH (5.0-8.0) Ur Specific [place] (1.005-1.030) Urine Protein (Negative) Urine Glucose (UA) (Negative) Urine Ketones (Negative) Urine Occult Blood (Negative) Urine Nitrite (Negative) Urine Bilirubin (Negative) Urine Urobilinogen (0.2-1.0) Ur Leukocyte Esterase (Negative) Urine RBC (0-5) /hpf Urine WBC (0-5) /hpf Ur Squamous Epith Cells (0-5) /hpf Urine Bacteria (FEW) /hpf Hyaline Casts (0-5) /lpf Urine Mucus (FEW) /hpf 03/19/19 Range/Units 17:47 WBC (4.23-9.07) K/mm3 RBC (4.63-6.08) M/mm3 Hgb (13.7-17.5) gm/dl Hct (40.1-51.0) % MCV (79.0-92.2) fl MCH (25.7-32.2) pg MCHC (32.2-35.5) g/dl RDW Std Deviation (35.1-43.9) fL Plt Count (163-337) K/mm3 MPV (9.4-12.3) fl Neutrophils % (Manual) (40-60) % Band Neutrophils % (0-10) % Lymphocytes % (Manual) (20-40) % Atypical Lymphs % % Monocytes % (Manual) (2-10) % Eosinophils % (Manual) (0.8-7.0) % Basophils % (Manual) (0.2-1.2) Toxic Granulation Platelet Estimate RBC Morph Comment Sodium (136-145) mEq/L Potassium (3.5-5.1) mEq/L Chloride (98-107) mEq/L Carbon Dioxide (21-32) mEq/L Anion Gap (5-15) BUN (7-18) mg/dL Creatinine (0.7-1.3) mg/dL Est Cr Clr Drug Dosing mL/min Estimated GFR (MDRD) (>60) mL/min BUN/Creatinine Ratio (14-18) Glucose (80-115) mg/dL Calcium (8.5-10.1) mg/dL Total Bilirubin (0.2-1.0) mg/dL GGT (15-85) U/L AST (15-37) U/L ALT (16-63) U/L Alkaline Phosphatase (46-116) U/L C-Reactive Protein (<1.0) mg/dL Total Protein (6.4-8.2) g/dl Albumin (3.4-5.0) g/dl Globulin gm/dL Albumin/Globulin Ratio (1-2) Lipase (73-393) U/L Urine Color Yellow (Yellow) Urine Appearance Slt cloudy H (Clear) Urine pH 7.5 (5.0-8.0) Ur Specific [place] 1.020 (1.005-1.030) Urine Protein 2+ H (Negative) Urine Glucose (UA) Negative (Negative) Urine Ketones Negative (Negative) Urine Occult Blood Negative (Negative) Urine Nitrite Negative (Negative) Urine Bilirubin 1+ H (Negative) Urine Urobilinogen 0.2 (0.2-1.0) Ur Leukocyte Esterase Negative (Negative) Urine RBC 0-5 (0-5) /hpf Urine WBC 0-5 (0-5) /hpf Ur Squamous Epith Cells 0-5 (0-5) /hpf Urine Bacteria Few (FEW) /hpf Hyaline Casts 0-5 (0-5) /lpf Urine Mucus Few (FEW) /hpf Meds: Medications Generic Name Dose Route Start Last Admin Trade Name Freq PRN Reason Stop Dose Admin Sodium Chloride 1,000 mls @ 999 mls/hr 03/19/19 15:45 03/19/19 16:15 Normal Saline IV 999 mls/hr ASDIRECTED DESHAWN Administration Piperacillin Sod/Tazobactam 100 mls @ 25 mls/hr 03/19/19 21:08 03/19/19 21:45 Sod 4.5 gm/ Sodium Chloride IV 03/20/19 01:07 25 mls/hr ONETIME ONE Administration Discontinued Medications Generic Name Dose Route Start Last Admin Trade Name Marilynn PRN Reason Stop Dose Admin Hydromorphone HCl 0.5 mg 03/19/19 15:29 03/19/19 15:37 Dilaudid IVPUSH 03/19/19 15:30 0.5 mg ONETIME ONE Administration Hydromorphone HCl 1 mg 03/19/19 17:31 03/19/19 17:37 Dilaudid IVPUSH 03/19/19 17:32 1 mg ONETIME ONE Administration Hydromorphone HCl 1 mg 03/19/19 22:43 03/19/19 22:48 Dilaudid IVPUSH 03/19/19 22:44 1 mg ONETIME ONE Administration Vancomycin HCl 1.5 gm/ Sodium 500 mls @ 250 mls/hr 03/19/19 21:09 03/19/19 22 :36 Chloride IV 03/19/19 21:10 250 mls/hr ONETIME ONE Administration Metoclopramide HCl 10 mg 03/19/19 18:42 03/19/19 19:16 Reglan IVPUSH 03/19/19 18:43 10 mg ONETIME ONE Administration Ondansetron HCl 4 mg 03/19/19 15:29 03/19/19 15:35 Zofran IVPUSH 03/19/19 15:30 4 mg ONETIME ONE Administration - Radiology Interpretation Free Text/Narrative:: Patient's CT is done, and demonstrates a large fluid collection in the left lobe of the liver likely representing an abscess. The stomach is markedly distended. There are fluid-filled loops of small bowel with air-fluid levels and probably causing suggesting gastroenteritis. The abscess measures 11.8 x 5.2 x 9.3 cm. - Re-Assessments/Exams Free Text/Narrative Re-Assessment/Exam: 03/19/19 16:00 Patient resents to the ED for the evaluation of vomiting and upper abdominal pain. Did order 0.5 mg Dilaudid and 4 mg Zofran for initial management with a CBC, CMP, lipase, urinalysis and a flat and upright abdominal x-ray with some IV fluids for initial management. Patient does have an extensive history, his case was discussed with Dr. Mota and he agrees with the plan at this time. 03/19/19 19:28 Patient's labs returned and demonstrates some acute abnormalities, white blood cell count still elevated at 15,000, patient's lipase is elevated at 774, and a CRP of 16, his sodium is low at 131 and his potassium mildly low at 3.1. The patient's case was discussed with and humberto a for possible hospitalization, however he declines at this time due to the patient's comorbidities and complexity. He recommended transfer to [place]. Patient would prefer [place] as his doctors are there. I have called in consult to try to transfer him to [facility] and Dr. Gutiérrez (hospitalist) excepts the patient for admission. Patient will be transported via private vehicle for further management. 03/19/19 19:39 Dr. Gutiérrez requested a CT be done of the patient's abdomen to make sure there is no abscess that would require surgical management. This will be obtained at this facility and images we pushed to their facility. Departure - Departure Time of Disposition: 21:20 Disposition: DC/Tfer to Acute Hospital 02 Condition: Fair Clinical Impression: Liver abscess - Discharge Information *PRESCRIPTION DRUG MONITORING PROGRAM REVIEWED*: No *COPY OF PRESCRIPTION DRUG MONITORING REPORT IN PATIENT JARETH: No Referrals: Sedrick Moralez Jr, MD [Primary Care Provider] - Forms: ED Department Discharge - My Orders Last 24 Hours: My Active Orders 03/19/19 15:45 Sodium Chloride 0.9% [Normal Saline] 1,000 ml IV ASDIRECTED 03/19/19 15:51 Abdomen 2V AP Flat Upright [CR] Stat 03/19/19 19:35 Abdomen Pelvis w Cont [CT] Stat 03/19/19 21:05 Blood Culture x2 Reflex Set [OM.PC] Stat 03/19/19 21:07 Nasogastric Orogastric Tube Insertion [OM.PC] Routine 03/19/19 21:08 Piperacillin/Tazobactam [Piperacil-Tazobact] 4.5 gm Sodium Chloride 0.9% [ Normal Saline] 100 ml IV ONETIME 03/19/19 21:30 CULTURE BLOOD [BC] Stat 03/19/19 21:40 CULTURE BLOOD [BC] Stat - Assessment/Plan Last 24 Hours: My Active Orders 03/19/19 15:45 Sodium Chloride 0.9% [Normal Saline] 1,000 ml IV ASDIRECTED 03/19/19 15:51 Abdomen 2V AP Flat Upright [CR] Stat 03/19/19 19:35 Abdomen Pelvis w Cont [CT] Stat 03/19/19 21:05 Blood Culture x2 Reflex Set [OM.PC] Stat 03/19/19 21:07 Nasogastric Orogastric Tube Insertion [OM.PC] Routine 03/19/19 21:08 Piperacillin/Tazobactam [Piperacil-Tazobact] 4.5 gm Sodium Chloride 0.9% [ Normal Saline] 100 ml IV ONETIME 03/19/19 21:30 CULTURE BLOOD [BC] Stat 03/19/19 21:40 CULTURE BLOOD [BC] Stat
[2019-03-19] MEDS ORDERED: HYDROmorphone 1 MG/ML Syringe IVPUSH ONE ×2 (17:31→22:43)
[2019-03-19] MEDS ORDERED: Metoclopramide 10 MG/2 ML SDV IVPUSH ONE (18:42)
[2019-03-19] MEDS ORDERED: Piperacillin/Tazobactam 4.5 GM in Sodium Chloride 0.9% 100 ML IV ONE (21:08)
[2019-03-19] MEDS ORDERED: Vancomycin 1.5 GM in Sodium Chloride 0.9% 500 ML IV ONE (21:09)
--- NOTE | 2019-03-20 13:42 | CR ---
Abdomen: Supine and upright views of the abdomen were obtained. Comparison: Prior abdominal x-ray of 03/09/19. Biliary stent is present. Bowel gas pattern appears within normal limits. Phlebolith is noted within the right side of the pelvis. Bony structures appear within normal limits. No free air is identified although right hemidiaphragm not completely included on the study. Impression: 1. Stable appearing biliary stent. Nothing acute seen on two-view abdominal x-ray. Diagnostic code #2
--- NOTE | 2019-03-20 13:45 | CT ---
CT abdomen and pelvis Technique: Multiple axial sections were obtained from above the dome of the diaphragm inferiorly through the pubic symphysis. Intravenous contrast was utilized. No oral contrast has been given. Delayed images were also obtained through the abdomen and pelvis. Comparison: Prior abdominal and pelvic CT exam performed without intravenous or oral contrast and dated 03/09/19. Findings: Low density finding noted within the left lobe of the liver. This finding is not seen even in retrospect on prior exam. This abnormality has fluid measurements. This finding measures about 10.6 x 4.9 cm. Biliary stent is present. Head of the pancreas shows superior cystic change extending into the suze hepatis presumably due to low density mass. Intrahepatic biliary duct dilatation is seen. Increased density is seen within both lung bases most likely due to atelectasis. Spleen is within normal limits. Adrenal glands show no nodule. Mild increased fluid is seen within the stomach. Mild enhancement of mucosa within the proximal jejunum. Portions of the stomach wall shows slight thickening. Aorta shows no aneurysm. Atherosclerotic change seen within the aorta. No retroperitoneal adenopathy or mesenteric abnormalities are seen. No pelvic mass or adenopathy is noted. Mild diverticuli are seen within the descending and sigmoid colon without inflammatory change of diverticulitis. Appendix is seen and is normal in size. Increased density is seen within the appendix presumably from previous barium study. Impression: 1. Cystic lesion within the left lobe of the liver which is an interval change from previous exam. Differential includes biloma, interval cyst or abscess. Abscess seems the most likely given its rapid appearance. 2. Cystic change within the superior head of the pancreas presumably due to pancreatic mass. 3. Stable biliary stent. 4. Increased fluid within the stomach. Questionable wall thickening is present within the stomach possibly relating to inflammatory change from the liver process. 5. Slight enhancement of small bowel mucosa within jejunum raising the possibility of mild gastroenteritis. Diagnostic code #5 I agree with preliminary report from [facility], finalized on 03/19/19, 9:49 PM Central Time
== END 2019-03-19 23:45 ==
LOC: JD.ED 14:59
DX: K75.0 Abscess of liver (principal); E78.00 Pure hypercholesterolemia, unspecified; I10 Essential (primary) hypertension; Z79.82 Long term (current) use of aspirin; Z87.891 Personal history of nicotine dependence
CPT/HCPCS: 36415; 74019; 74177; 80053; 81001; 82977; 83690; 85007; 85027; 86140; 87040; 96361; 96365; 96367; 96375; 96376; 99285; J1170; J2405; J2543; J2765; J3370; J7030; J7040

== ENCOUNTER 2019-04-03 19:46 | Emergency (ER) | payer OTHER ==
--- NOTE | 2019-04-03 20:14 | EDM.PDOC ---
ED HPI GENERAL MEDICAL PROBLEM - General Chief Complaint: Abdominal Pain Stated Complaint: DRAINAGE TUBE BLOCK Time Seen by Provider: 04/03/19 20:14 - History of Present Illness INITIAL COMMENTS - FREE TEXT/NARRATIVE: 63-year-old male presents emergency room with a drain that is not draining. the patient has a recent diagnosis of pancreatic cancer he was in the hospital good portion of last month. He was released towards the end of the month and has done well until yesterday. The patient had a percutaneous drain placed into a cyst or an abscess are not sure what. It stopped draining yesterday they've tried irrigating it at home probably get solution back out around the dressing. His pain is getting worse he has not noticed any fevers chills or signs of systemic illness he says his condition is not getting any worse. - Related Data Allergies Allergy/AdvReac Type Severity Reaction Status Date / Time No Known Allergies Allergy Verified 03/09/19 19:48 Home Meds: Home Meds Acetaminophen [Tylenol Extra Strength] 500 mg PO DAILY 03/09/19 [History] Aspirin/Caffeine [Trey Back & Body Caplet] 1 each PO DAILY 03/09/19 [History] Chlorthalidone 25 mg PO DAILY 03/09/19 [History] Enalapril Maleate 20 mg PO DAILY 03/09/19 [History] Ibuprofen 200 mg PO Q4HR 03/09/19 [History] Simvastatin [Zocor] 40 mg PO DAILY 03/09/19 [History] oxyCODONE HCl/Acetaminophen [Oxycodone-Acetaminophen 5-325] 1 each PO Q4HR 03/09 [History] Past Medical History HEENT History: Reports: None Cardiovascular History: Reports: High Cholesterol, Hypertension Respiratory History: Reports: None Gastrointestinal History: Reports: Pancreatitis Genitourinary History: Reports: None Musculoskeletal History: Reports: None Neurological History: Reports: None Psychiatric History: Reports: None Endocrine/Metabolic History: Reports: None Hematologic History: Reports: None Immunologic History: Reports: None Oncologic (Cancer) History: Reports: Pancreatic Dermatologic History: Reports: None - Infectious Disease History Infectious Disease History: Reports: None - Past Surgical History Head Surgeries/Procedures: Reports: None GI Surgical History: Reports: ERCP Other GI Surgeries/Procedures: Stents placed in pancreas and liver. Social & Family History - Caffeine Use Caffeine Use: Reports: Coffee, Soda - Living Situation & Occupation Living situation: Reports: Occupation: Employed ED ROS GENERAL - Review of Systems Review Of Systems: See Below Constitutional: Reports: No Symptoms Respiratory: Reports: No Symptoms Cardiovascular: Reports: No Symptoms Endocrine: Reports: No Symptoms GI/Abdominal: Reports: Abdominal Pain (Is getting some discomfort where the drain is and in his upper abdomen this is not severe) : Reports: No Symptoms Musculoskeletal: Reports: No Symptoms Skin: Reports: No Symptoms Neurological: Reports: No Symptoms ED EXAM, GI/ABD - Physical Exam Exam: See Below Exam Limited By: No Limitations General Appearance: Alert, No Apparent Distress Head: Atraumatic, Normocephalic Neck: Normal Inspection, Supple, Non-Tender, Full Range of Motion Respiratory/Chest: No Respiratory Distress, Lungs Clear, Normal Breath Sounds Cardiovascular: Regular Rate, Rhythm, No Edema, No Murmur GI/Abdominal Exam: Normal Bowel Sounds, Soft, Other (Minimal discomfort with palpation no rigidity rebound or guarding) Back Exam: Normal Inspection. No: CVA Tenderness (L), CVA Tenderness (R) Course - Vital Signs Text/Narrative:: Case discussed with [facility] in [place]. Case discussed with Dr. Rodriguez, in the ER who is kind enough to accept. Last Recorded V/S: Last Vital Signs Temp 37.3 C 04/03/19 20:17 Pulse 105 H 04/03/19 20:17 Resp 20 04/03/19 20:17 BP 107/76 04/03/19 20:17 Pulse Ox 97 04/03/19 20:17 Departure - Departure Time of Disposition: 20:51 Disposition: DC/Tfer to Acute Hospital 02 Clinical Impression: Pancreatic cancer - Discharge Information Instructions: Pancreatic Cancer Referrals: Sedrick Moralez Jr, MD [Primary Care Provider] - Forms: ED Department Discharge Additional Instructions: The emergency room at [facility] in [facility] for further evaluation and treatment of this plugged drain. Do this as quickly as possible. Get there as soon as you can this evening do not have anything to eat or drink.
== END 2019-04-03 21:03 ==
LOC: JD.ED 19:46
DX: C25.9 Malignant neoplasm of pancreas, unspecified (principal); I10 Essential (primary) hypertension; E78.00 Pure hypercholesterolemia, unspecified; Z79.899 Other long term (current) drug therapy
CPT/HCPCS: 99284

== ENCOUNTER 2021-09-03 09:41 | Inpatient (IN) | payer MEDICARE, BC ==
[2021-09-03] MEDS ORDERED: Metoclopramide 10 MG/2 ML SDV IVPUSH ONE (10:42)
[2021-09-03] MEDS ORDERED: Dextrose 5%-0.9% NaCl 1,000 ML IV SCH (10:45)
[2021-09-03] MEDS ORDERED: Dextrose 5%-Lactated Ringers 1,000 ML IV SCH (12:15)
[2021-09-03] MEDS: Potassium Chloride 10 MEQ in Premix Bag 1 BAG IV SCH ×6 (12:47→23:07)
[2021-09-03] MEDS ORDERED: NS + KCl 20mEq/L 1,000 ML IV SCH (14:00)
[2021-09-03] MEDS ORDERED: Ondansetron 4 MG/2 ML SDV IVPUSH PRN (14:02)
[2021-09-03] MEDS ORDERED: Heparin Sodium 5,000 Units/ML Vial SUBCUT SCH (14:15)
[2021-09-03] MEDS ORDERED: Metoclopramide 10 MG/2 ML SDV IVPUSH PRN (14:16)
[2021-09-03] MEDS: Pantoprazole 40 MG Vial IVPUSH SCH (15:42)
[2021-09-03] MEDS: D5 1/2 NS w/ 20 mEq/L KCl 1,000 ML IV SCH (15:42)
[2021-09-04] MEDS: D5 1/2 NS w/ 20 mEq/L KCl 1,000 ML IV SCH ×2 (01:38→21:59)
[2021-09-04] MEDS: Pantoprazole 40 MG Vial IVPUSH SCH ×2 (03:00→16:31)
[2021-09-04] MEDS ORDERED: Magnesium Hydroxide 400 MG/5 ML Susp 30 ML Cup PO ONE (06:00)
[2021-09-04] MEDS: Potassium Chloride 10 MEQ in Premix Bag 1 BAG IV SCH ×10 (08:25→21:57)
[2021-09-05] MEDS: Pantoprazole 40 MG Vial IVPUSH SCH ×2 (02:32→13:58)
[2021-09-05] MEDS ORDERED: Potassium Phosphates 30 MMOLE in Sodium Chloride 0.9% 500 ML IV ONE ×2 (09:00→16:00)
[2021-09-06] MEDS: Pantoprazole 40 MG Vial IVPUSH SCH ×3 (01:00→14:45)
[2021-09-06] MEDS: D5 1/2 NS w/ 20 mEq/L KCl 1,000 ML IV SCH (04:22)
[2021-09-06] MEDS ORDERED: Fat Emulsion 500 ML IV SCH (14:30)
[2021-09-06] MEDS ORDERED: MVI, Adult with Vitamin K 10 ML in AA 5%/Calcium/D20W/Lytes 1,000 ML IV SCH ×2 (15:00)
[2021-09-06] MEDS: Fat Emulsion 500 ML IV SCH (16:47)
[2021-09-07] MEDS: Pantoprazole 40 MG Vial IVPUSH SCH ×2 (01:21→14:36)
[2021-09-07] MEDS: fentaNYL 100 MCG/2 ML SDV IVPUSH PRN ×2 (01:43→15:01)
[2021-09-07] MEDS ORDERED: [UNRECOGNIZED DRUG - NUTRITION] ONE ×2 (03:00→15:00)
[2021-09-07] MEDS ORDERED: Magnesium Sulfate/Water 2 GM in Premix Bag 1 BAG IV ONE (06:40)
[2021-09-07] MEDS ORDERED: Famotidine 40 MG/5 ML Bottle PO PRN (08:42)
[2021-09-07] MEDS: Calcium Carbonate 500 MG Tab.Chew PO PRN ×2 (09:17→14:44)
[2021-09-07] MEDS: AA 5%/Calcium/D20W/Lytes 1,000 ML IV SCH (19:20)
[2021-09-08] MEDS: Pantoprazole 40 MG Vial IVPUSH SCH ×2 (01:19→15:17)
[2021-09-08] MEDS: AA 5%/Calcium/D20W/Lytes 1,000 ML IV SCH (13:08)
[2021-09-08] MEDS: Fat Emulsion 500 ML IV SCH (15:23)
[2021-09-09] MEDS: Pantoprazole 40 MG Vial IVPUSH SCH ×2 (03:18→15:10)
[2021-09-09] MEDS: AA 5%/Calcium/D20W/Lytes 1,000 ML IV SCH (05:52)
[2021-09-09] MEDS ORDERED: AA 5%/Calcium/D20W/Lytes 1,000 ML IV SCH (11:00)
[2021-09-09] MEDS: Fat Emulsion 500 ML IV SCH (15:30)
[2021-09-10] MEDS: Pantoprazole 40 MG Vial IVPUSH SCH (02:54)
== END 2021-09-10 10:42 | disposition home health service (06) | DRG 435 ==
LOC: JD.ED 09:41 → JD.MS 12:50
PROVIDERS: ADMIT Emergency Medicine; ATTEND Internal Medicine
DX: C25.9 Malignant neoplasm of pancreas, unspecified (principal); E43 Unspecified severe protein-calorie malnutrition; C79.9 Secondary malignant neoplasm of unspecified site; N28.9 Disorder of kidney and ureter, unspecified; K31.1 Adult hypertrophic pyloric stenosis; I50.9 Heart failure, unspecified; N17.9 Acute kidney failure, unspecified; R64 Cachexia; Z68.1 Body mass index [BMI] 19.9 or less, adult; D69.6 Thrombocytopenia, unspecified; E87.6 Hypokalemia; E78.00 Pure hypercholesterolemia, unspecified; I10 Essential (primary) hypertension; Z20.822 Contact with and (suspected) exposure to COVID-19; F17.210 Nicotine dependence, cigarettes, uncomplicated; E86.9 Volume depletion, unspecified; Z79.82 Long term (current) use of aspirin; Z79.899 Other long term (current) drug therapy; E87.5 Hyperkalemia
CPT/HCPCS: 36415; 74018; 80053; 82009; 83735; 83880; 83930; 85025; 85610; 85652; 85730; 86140; 93005; 96374; 99285; J2765; J3480; J7042; J7121; 80048; 81001; 82947; 83615; 84100; 84132; 85007; 85027; 93010; A9270-GY; C9113; J1642; J2405; J3010; J3475; J3490; J7040; U0002

== ENCOUNTER 2021-10-20 14:03 | Observation (INO) | payer MEDICARE, BC ==
[2021-10-20] MEDS ORDERED: Sodium Chloride 0.9% 1,000 ML IV ONE (14:40)
[2021-10-20] MEDS ORDERED: Ondansetron 4 MG/2 ML SDV IVPUSH ONE (14:40)
[2021-10-20] MEDS ORDERED: Sodium Chloride 0.9% 10 ML Syringe FLUSH PRN (14:40)
[2021-10-20] MEDS ORDERED: HYDROmorphone 0.5 MG/0.5 ML Syringe IVPUSH ONE ×2 (14:49→16:56)
[2021-10-20] MEDS ORDERED: Acetaminophen 325 MG Tab PO PRN (17:25)
[2021-10-20] MEDS ORDERED: LORazepam 2 MG/ML SDV IV PRN (17:25)
[2021-10-20] MEDS ORDERED: oxyCODONE 5 MG Tab PO PRN (17:25)
[2021-10-20] MEDS ORDERED: Docusate Sodium 100 MG Cap PO PRN (17:25)
[2021-10-20] MEDS ORDERED: diphenhydrAMINE 50 MG/ML SDV IV ONE (17:39)
[2021-10-20] MEDS ORDERED: Famotidine 20 MG/2 ML SDV IVPUSH ONE (18:00)
[2021-10-20] MEDS: Pantoprazole 40 MG Vial IVPUSH SCH (18:25)
[2021-10-20] MEDS ORDERED: Sodium Chloride 0.9% 250 ML IV SCH (19:00)
[2021-10-20] MEDS ORDERED: diphenhydrAMINE 50 MG/ML SDV IVPUSH ONE ×2 (19:46)
[2021-10-20] MEDS ORDERED: [UNRECOGNIZED DRUG - OTHER] SCH (20:15)
[2021-10-20] MEDS ORDERED: TPN SCH (20:15)
[2021-10-20] MEDS: HYDROmorphone 0.5 MG/0.5 ML Syringe IVPUSH PRN (23:03)
[2021-10-21] MEDS ORDERED: Bisacodyl 10 MG Supp RECTAL ONE (02:16)
[2021-10-21] MEDS: HYDROmorphone 0.5 MG/0.5 ML Syringe IVPUSH PRN ×5 (02:28→15:28)
[2021-10-21] MEDS: Pantoprazole 40 MG Vial IVPUSH SCH ×2 (05:34→16:58)
[2021-10-21] MEDS ORDERED: [UNRECOGNIZED DRUG - OTHER] TOP PRN (06:48)
[2021-10-21] MEDS ORDERED: [UNRECOGNIZED DRUG - NUTRITION] SCH (08:15)
[2021-10-21] MEDS ORDERED: FAT EMULSION IVPUSH SCH (08:43)
[2021-10-21] MEDS ORDERED: FAT EMULSION SCH ×2 (08:45→09:53)
[2021-10-21] MEDS ORDERED: Famotidine 20 MG/2 ML SDV IVPUSH SCH (09:00)
[2021-10-21] MEDS ORDERED: Nicotine 14 MG/24 Hr Patch TRDERM SCH (09:00)
[2021-10-21] MEDS ORDERED: Lactulose Soln 10 GM/15 ML 30 ML UD Cup PO SCH (10:15)
[2021-10-21] MEDS ORDERED: Famotidine 20 MG/2 ML SDV IVPUSH ONE (13:27)
[2021-10-22] MEDS ORDERED: Famotidine 20 MG/2 ML SDV IVPUSH SCH (09:00)
== END 2021-10-21 16:50 | disposition home or self-care (01) ==
LOC: JD.ED 14:03 → JD.MS 17:09
PROVIDERS: ADMIT Internal Medicine; ATTEND Internal Medicine
DX: D63.0 Anemia in neoplastic disease (principal); C25.9 Malignant neoplasm of pancreas, unspecified; C79.9 Secondary malignant neoplasm of unspecified site; E78.00 Pure hypercholesterolemia, unspecified; I10 Essential (primary) hypertension; F17.200 Nicotine dependence, unspecified, uncomplicated; R64 Cachexia; Z79.899 Other long term (current) drug therapy
CPT/HCPCS: 36415; 36430; 71046; 74019; 74176; 80053; 81001; 83605; 83735; 84100; 85025; 85610; 86850; 86900; 86901; 86922; 87040; 96374; 96375; 96376; 99284; A9270; C9113; G0378; J1170; J1200; J2405; J3490; J7030; J7050; P9016; 99217; 99220

== ENCOUNTER 2021-10-23 19:05 | Inpatient (IN) | payer MEDICARE, BC ==
[2021-10-23] MEDS ORDERED: HYDROmorphone 1 MG/ML Syringe IVPUSH PRN (21:35)
[2021-10-23] MEDS ORDERED: Ondansetron 4 MG/2 ML SDV IVPUSH PRN (21:36)
[2021-10-23] MEDS: Sodium Chloride 0.9% 1,000 ML IV SCH (23:01)
[2021-10-23] MEDS: HYDROmorphone 1 MG/ML Syringe IVPUSH SCH (23:29)
[2021-10-23] MEDS: Ondansetron 4 MG/2 ML SDV IVPUSH SCH (23:34)
[2021-10-24] MEDS: Ondansetron 4 MG/2 ML SDV IVPUSH SCH ×3 (02:36→14:06)
[2021-10-24] MEDS: HYDROmorphone 1 MG/ML Syringe IVPUSH SCH ×3 (02:36→09:52)
[2021-10-24] MEDS ORDERED: [UNRECOGNIZED DRUG - OTHER] TOP PRN (06:58)
[2021-10-24] MEDS ORDERED: HYDROmorphone 1 MG/ML Syringe IVPUSH PRN (07:12)
[2021-10-24] MEDS: fentaNYL 25 MCG/HR Transdermal Patch TRDERM SCH (08:48)
[2021-10-24] MEDS: HYDROmorphone 1 MG/ML Syringe IVPUSH PRN ×2 (11:55→17:04)
[2021-10-24] MEDS ORDERED: TPN SCH (14:00)
[2021-10-24] MEDS ORDERED: [UNRECOGNIZED DRUG - OTHER] SCH (14:00)
[2021-10-24] MEDS: Sodium Chloride 0.9% 1,000 ML IV SCH (18:10)
[2021-10-25] MEDS: HYDROmorphone 1 MG/ML Syringe IVPUSH PRN ×6 (00:29→19:57)
[2021-10-25] MEDS ORDERED: diphenhydrAMINE 50 MG/ML SDV IV ONE (06:54)
[2021-10-25] MEDS ORDERED: Acetaminophen 325 MG Tab PO ONE (06:54)
[2021-10-25] MEDS ORDERED: FAT EMULSION IV SCH (06:58)
[2021-10-25] MEDS ORDERED: Sodium Chloride 0.9% 250 ML IV SCH (09:45)
[2021-10-25] MEDS ORDERED: Sodium Chloride 0.9% 250 ML ONE (15:13)
[2021-10-25] MEDS: Sodium Chloride 0.9% 1,000 ML IV SCH (19:11)
[2021-10-26] MEDS: HYDROmorphone 1 MG/ML Syringe IVPUSH PRN ×4 (00:50→18:06)
[2021-10-26] MEDS: Sodium Chloride 0.9% 1,000 ML IV SCH (15:10)
[2021-10-27] MEDS: fentaNYL 25 MCG/HR Transdermal Patch TRDERM SCH (09:35)
[2021-10-27] MEDS: Morphine 10 MG/0.5 ML Oral Syringe PO SCH ×2 (09:50→21:56)
[2021-10-27] MEDS: Sodium Chloride 0.9% 1,000 ML IV SCH (10:04)
[2021-10-28] MEDS: Sodium Chloride 0.9% 1,000 ML IV SCH (06:05)
[2021-10-28] MEDS: Morphine 10 MG/0.5 ML Oral Syringe PO SCH ×2 (11:16→22:07)
[2021-10-28] MEDS: HYDROmorphone 1 MG/ML Syringe IVPUSH PRN (18:32)
[2021-10-29] MEDS: Sodium Chloride 0.9% 1,000 ML IV SCH ×2 (03:10→22:50)
[2021-10-29] MEDS: HYDROmorphone 1 MG/ML Syringe IVPUSH PRN (03:10)
[2021-10-29] MEDS: Morphine 10 MG/0.5 ML Oral Syringe PO SCH ×2 (09:07→21:01)
[2021-10-29] MEDS: Benzocaine 20% Topical Spray UD MUCMEM PRN ×2 (10:25→15:08)
[2021-10-29] MEDS ORDERED: Famotidine 20 MG/2 ML SDV IVPUSH ONE ×2 (18:02→18:15)
[2021-10-30] MEDS: Morphine 10 MG/0.5 ML Oral Syringe PO SCH ×2 (08:02→21:28)
[2021-10-30] MEDS: fentaNYL 25 MCG/HR Transdermal Patch TRDERM SCH (08:06)
[2021-10-30] MEDS: Ondansetron 4 MG/2 ML SDV IVPUSH PRN (11:25)
[2021-10-30] MEDS ORDERED: Lidocaine 2% Jelly 5 ML Tube MUCMEM PRN (12:12)
[2021-10-30] MEDS ORDERED: Dextrose 10% in Water 1,000 ML IV SCH ×3 (15:00→16:00)
[2021-10-30] MEDS: Dextrose 10% in Water 1,000 ML IV SCH (15:59)
[2021-10-30] MEDS: Sodium Chloride 0.9% 1,000 ML IV SCH (17:58)
[2021-10-31] MEDS: Morphine 10 MG/0.5 ML Oral Syringe PO SCH ×2 (08:57→21:00)
[2021-10-31] MEDS: Dextrose 10% in Water 1,000 ML IV SCH (11:09)
[2021-10-31] MEDS: Ondansetron 4 MG/2 ML SDV IVPUSH PRN (11:14)
[2021-10-31] MEDS: Sodium Chloride 0.9% 1,000 ML IV SCH (12:47)
[2021-10-31] MEDS ORDERED: Pantoprazole 40 MG Vial IVPUSH SCH (20:00)
[2021-10-31] MEDS: Pantoprazole 40 MG Vial IVPUSH SCH (20:37)
[2021-10-31] MEDS ORDERED: Metoclopramide 10 MG/2 ML SDV IVPUSH PRN (20:40)
[2021-11-01] MEDS: Morphine 10 MG/0.5 ML Oral Syringe PO SCH (08:10)
[2021-11-01] MEDS: Pantoprazole 40 MG Vial IVPUSH SCH (08:11)
[2021-11-01] MEDS: Sodium Chloride 0.9% 1,000 ML IV SCH (08:15)
== END 2021-11-01 17:13 | disposition home or self-care (01) | DRG 436 ==
LOC: JD.ED 19:05 → JD.MS 20:51 → OBSVTOIN 10-25 09:11
PROVIDERS: ADMIT Internal Medicine; ATTEND Internal Medicine
PROC: 30233N1 Transfusion of Nonautologous Red Blood Cells into Peripheral Vein, Percutaneous Approach (ICD-10-PCS; principal; 2021-10-23)
DX: C25.9 Malignant neoplasm of pancreas, unspecified (principal); C78.7 Secondary malignant neoplasm of liver and intrahepatic bile duct; K31.1 Adult hypertrophic pyloric stenosis; C80.0 Disseminated malignant neoplasm, unspecified; C78.89 Secondary malignant neoplasm of other digestive organs; N17.9 Acute kidney failure, unspecified; K92.0 Hematemesis; Z87.19 Personal history of other diseases of the digestive system; R64 Cachexia; Z68.1 Body mass index [BMI] 19.9 or less, adult; Z51.5 Encounter for palliative care; D63.0 Anemia in neoplastic disease; D69.6 Thrombocytopenia, unspecified; J02.9 Acute pharyngitis, unspecified; F17.210 Nicotine dependence, cigarettes, uncomplicated; E78.00 Pure hypercholesterolemia, unspecified; I10 Essential (primary) hypertension; Z79.899 Other long term (current) drug therapy
CPT/HCPCS: 36415 ×2; 43752; 71045; 80053 ×2; 85025 ×2; 85610; 85730; 86850; 86900; 86901; 86922; 99285; J1170 ×5; J2405 ×2; J7030 ×2; 36430; 82728; 82747; 83540; 83735; 84100; 84478; 85014; 85027; 96374; 96375; 96376; 99284; A9270-GY; C9113; G0378; J1200; J3490; J7042; J7050; P9016

== ENCOUNTER 2021-11-20 09:55 | Emergency (ER) | payer MEDICARE, BC ==
[2021-11-20] MEDS ORDERED: HYDROmorphone 1 MG/ML Syringe IM ONE (10:33)
== END 2021-11-20 12:55 | disposition home or self-care (01) ==
LOC: JD.ED 09:55
DX: C25.9 Malignant neoplasm of pancreas, unspecified (principal); K31.1 Adult hypertrophic pyloric stenosis; E78.00 Pure hypercholesterolemia, unspecified; I10 Essential (primary) hypertension; F17.210 Nicotine dependence, cigarettes, uncomplicated
CPT/HCPCS: 74018; 96372; 99284; J1170

== ENCOUNTER 2021-11-22 09:50 | Inpatient (IN) | payer MEDICARE, BC ==
[2021-11-22] MEDS ORDERED: Sodium Chloride 0.9% 1,000 ML IV SCH (10:15)
[2021-11-22] MEDS ORDERED: Diatrizoate Meglumine/Diatrizoate Sodium 37% 120 ML Bottle PO ONE (10:16)
[2021-11-22] MEDS ORDERED: Iopamidol 612 MG/ML 100 ML Bottle IVPUSH ONE (10:16)
[2021-11-22] MEDS: Sodium Chloride 0.9% 10 ML Syringe FLUSH PRN ×2 (10:17→11:24)
[2021-11-22 11:10] LABS: ESTIMATED GFR > 60 mL/min (>60)
[2021-11-22] MEDS ORDERED: LORazepam 2 MG/ML SDV IVPUSH PRN (14:06)
[2021-11-22] MEDS ORDERED: AA 5%/Calcium/D20W/Lytes 1,000 ML IV SCH (14:15)
[2021-11-22] MEDS ORDERED: [UNRECOGNIZED DRUG - OTHER] SCH (15:30)
[2021-11-22] MEDS ORDERED: [UNRECOGNIZED DRUG - OTHER] IVPUSH SCH (15:30)
[2021-11-22] MEDS ORDERED: TPN IVPUSH SCH (15:30)
[2021-11-22] MEDS ORDERED: TPN SCH (15:30)
[2021-11-22] MEDS: HYDROmorphone 0.5 MG/0.5 ML Syringe IVPUSH PRN (15:31)
[2021-11-22] MEDS: Sodium Chloride 0.9% 1,000 ML IV SCH (15:38)
[2021-11-23] MEDS: Sodium Chloride 0.9% 1,000 ML IV SCH ×2 (01:06→11:08)
[2021-11-23] MEDS: HYDROmorphone 0.5 MG/0.5 ML Syringe IVPUSH PRN ×4 (05:23→19:49)
[2021-11-23] MEDS: Ondansetron 4 MG/2 ML SDV IVPUSH PRN ×2 (05:24→15:56)
[2021-11-23 06:03] LABS: ESTIMATED GFR > 60 mL/min (>60)
[2021-11-23] MEDS ORDERED: Scopolamine 1.5 MG Transdermal Patch TRDERM PRN (20:19)
[2021-11-23] MEDS ORDERED: fentaNYL 2,500 MCG in Sodium Chloride 0.9% 200 ML IV SCH (20:30)
[2021-11-23] MEDS ORDERED: Sodium Chloride 0.9% 250 ML IV ONE (20:45)
[2021-11-23] MEDS ORDERED: Sodium Chloride 0.9% 1,000 ML IV SCH (21:00)
[2021-11-23] MEDS: fentaNYL 100 MCG/2 ML SDV IVPUSH PRN (23:45)
[2021-11-24] MEDS: fentaNYL 100 MCG/2 ML SDV IVPUSH PRN ×5 (01:54→22:40)
[2021-11-24] MEDS ORDERED: Nystatin Susp 100,000 Unit/ML 5 ML Oral Syringe PO PRN (09:27)
[2021-11-24] MEDS ORDERED: fentaNYL 50 MCG/HR Transdermal Patch TRDERM SCH (14:00)
[2021-11-25] MEDS: LORazepam 2 MG/ML SDV IVPUSH PRN ×3 (00:14→04:31)
[2021-11-25] MEDS: fentaNYL 100 MCG/2 ML SDV IVPUSH PRN ×4 (02:49→16:08)
[2021-11-26] MEDS: fentaNYL 100 MCG/2 ML SDV IVPUSH PRN (11:38)
[2021-11-26] MEDS ORDERED: Morphine 10 MG/0.5 ML Oral Syringe PO PRN ×2 (13:14)
[2021-11-27] MEDS: LORazepam 2 MG/ML SDV IVPUSH PRN (00:39)
[2021-11-27] MEDS: Morphine 10 MG/0.5 ML Oral Syringe PO PRN ×2 (00:54→14:51)
[2021-11-27] MEDS ORDERED: Morphine 10 MG/0.5 ML Oral Syringe PO ONE (09:12)
[2021-11-27] MEDS ORDERED: fentaNYL 25 MCG/HR Transdermal Patch TRDERM SCH (09:15)
[2021-11-27] MEDS ORDERED: fentaNYL 75 MCG/HR Transdermal Patch TRDERM SCH (10:00)
== END 2021-11-28 11:45 | disposition hospice, home (50) | DRG 375 ==
LOC: JD.ED 09:50 → JD.MS 14:01
PROVIDERS: ADMIT Internal Medicine; ATTEND Internal Medicine
DX: K56.699 Other intestinal obstruction unspecified as to partial versus complete obstruction (principal); C78.6 Secondary malignant neoplasm of retroperitoneum and peritoneum; R41.0 Disorientation, unspecified; E87.1 Hypo-osmolality and hyponatremia; R64 Cachexia; C80.0 Disseminated malignant neoplasm, unspecified; I10 Essential (primary) hypertension; I50.32 Chronic diastolic (congestive) heart failure; C78.7 Secondary malignant neoplasm of liver and intrahepatic bile duct; C25.9 Malignant neoplasm of pancreas, unspecified; Z79.899 Other long term (current) drug therapy; Z51.5 Encounter for palliative care; E78.00 Pure hypercholesterolemia, unspecified; R16.1 Splenomegaly, not elsewhere classified; F03.90 Unspecified dementia, unspecified severity, without behavioral disturbance, psychotic disturbance, mood disturbance, and anxiety; D63.0 Anemia in neoplastic disease; E86.0 Dehydration; I11.0 Hypertensive heart disease with heart failure; E11.49 Type 2 diabetes mellitus with other diabetic neurological complication; Z79.4 Long term (current) use of insulin; Z95.828 Presence of other vascular implants and grafts; Z78.9 Other specified health status; Z97.8 Presence of other specified devices
CPT/HCPCS: 36415; 70450; 71045; 74177; 80053; 81001; 83605; 83690; 83735; 84484; 85025; 86140; 93005; 96360; 99285; J3490 ×2; J7030; Q9963; Q9967; 51702; 80048; 82947; A9270-GY; J1170; J1642; J2060; J2405; J3010; J7050